=== PATIENT | female | born 1960 | race Caucasian/White ===

== ENCOUNTER → 2017-09-06 | Outpatient (CLI) | payer BC ==
--- NOTE | 2017-09-06 16:30 | ECGEPIP ---
Stationary ECG Study [facility] Test Date: 2017-09-06 Pat Name: FIDE GROSS Department: Room: - Gender: F Environmental Remediation Specialist: : [id number] Requested By: Ney Ramirez @ [facility] Order Number: [id number] Reading MD: Carlene Ann Measurements Intervals [place] Rate: 53 P: 18 UT: 168 QRS: 79 QRSD: 82 T: 65 QT: 415 QTc: 391 Interpretive Statements SINUS BRADYCARDIA no prior Electronically Signed On 09-06-2017 16:29:45 EDT by Carlene Ann
== END ==
LOC: M EKG 15:21
PROVIDERS: ATTEND Orthopaedic Surgery
DX: Z01.812 Encounter for preprocedural laboratory examination (principal)

== ENCOUNTER → 2021-12-08 | Outpatient (REF) | LOC: M LABSMTC 11:15 | PROVIDERS: ATTEND Pediatrics | DX: Z20.822 Contact with and (suspected) exposure to COVID-19 (principal) ==

== ENCOUNTER → 2022-12-19 | Outpatient (CLI) | payer BC ==
[~2022-12-19] MED LIST: ATOR80TA59; CETI5SOL3 PO; ECOT81TA5 PO; METO1TAB7; VITMTA PO
== END ==
LOC: M LABSMTC 11:13
PROVIDERS: ATTEND Anesthesiology
DX: Z01.818 Encounter for other preprocedural examination (principal); Z11.52 Encounter for screening for COVID-19

== ENCOUNTER 2022-12-24 08:50 | Day surgery (SDC) | payer BC ==
[~2022-12-24] VITALS: Ht 160 cm; Wt 60.8 kg
[~2022-12-24 08:50] MED LIST changes: +NS 1,000 ML IV ONE
[2022-12-24] MEDS ORDERED: propofoL 200 MG/20 ML VIAL As Ordered ONE ×3 (10:31→11:07)
[2022-12-24] MEDS ORDERED: LIDOCAINE 2% 100MG/5ML SDV (FOR ANES.) As Ordered ONE (10:31)
[2022-12-24 11:15] VITALS: BP 139/71
== END 2022-12-24 11:28 | disposition home or self-care (01) ==
LOC: M OPP 08:50
PROVIDERS: ATTEND Internal Medicine Gastroenterology
DX: Z12.11 Encounter for screening for malignant neoplasm of colon (principal); K64.8 Other hemorrhoids; Z79.02 Long term (current) use of antithrombotics/antiplatelets; Z79.52 Long term (current) use of systemic steroids; Z79.899 Other long term (current) drug therapy; I48.91 Unspecified atrial fibrillation; F17.200 Nicotine dependence, unspecified, uncomplicated; Z86.74 Personal history of sudden cardiac arrest; Z80.41 Family history of malignant neoplasm of ovary

== ENCOUNTER → 2023-07-31 | Outpatient (CLI) | payer BC ==
[~2023-07-31] MED LIST changes: -NS 1,000 ML IV ONE
== END ==
LOC: M WUC 11:17
PROVIDERS: ATTEND Registered Nurse
DX: M25.531 Pain in right wrist (principal)

== ENCOUNTER → 2024-04-09 | Outpatient (CLI) | payer BC | LOC: M WHC 10:05 | PROVIDERS: ATTEND Internal Medicine | DX: Z12.31 Encounter for screening mammogram for malignant neoplasm of breast (principal); N63.15 Unspecified lump in the right breast, overlapping quadrants; N63.25 Unspecified lump in the left breast, overlapping quadrants ==

== ENCOUNTER 2024-04-14 20:01 | Emergency (ER) | payer OTHER, BC ==
[~2024-04-14] VITALS: Ht 160 cm; Wt 62.3 kg
[2024-04-14] MEDS: ACETAMINOPHEN 325 MG TAB PO ONE (22:00)
[2024-04-14] MEDS: BOOSTRIX VACCINE (TETANUS/DIPHTH/ACEL. PERTUSSIS) 0.5ML SYR IM.IMMUN ONE (22:00)
[2024-04-14] MEDS: BACITRACIN OINTMENT 30GM TUBE TOP ONE (22:00)
[2024-04-15 00:20] VITALS: BP 127/58; TEMP 97.8; O2SAT 95
== END 2024-04-15 00:23 | disposition home or self-care (01) ==
LOC: M ED 20:01
DX: S60.211A Contusion of right wrist, initial encounter (principal); S23.9XXA Sprain of unspecified parts of thorax, initial encounter; S40.811A Abrasion of right upper arm, initial encounter; V49.40XA Driver injured in collision with unspecified motor vehicles in traffic accident, initial encounter; Z23 Encounter for immunization; Y92.410 Unspecified street and highway as the place of occurrence of the external cause; Y93.89 Activity, other specified; Y99.9 Unspecified external cause status; Z79.82 Long term (current) use of aspirin; Z79.02 Long term (current) use of antithrombotics/antiplatelets; Z79.899 Other long term (current) drug therapy; Z96.698 Presence of other orthopedic joint implants

== ENCOUNTER → 2024-04-28 | Outpatient (CLI) | payer BC | LOC: M WHC 11:05 | PROVIDERS: ATTEND Internal Medicine | DX: Z12.31 Encounter for screening mammogram for malignant neoplasm of breast (principal); N63.23 Unspecified lump in the left breast, lower outer quadrant | CPT/HCPCS: 76641; 77065; G0279 ==

== ENCOUNTER → 2024-10-27 | Outpatient (CLI) | payer BC | LOC: M RAD 15:32 | PROVIDERS: ATTEND Internal Medicine | DX: Z12.2 Encounter for screening for malignant neoplasm of respiratory organs (principal); F17.210 Nicotine dependence, cigarettes, uncomplicated; R91.8 Other nonspecific abnormal finding of lung field; M85.89 Other specified disorders of bone density and structure, multiple sites ==

== ENCOUNTER → 2025-02-03 | Outpatient (CLI) | payer BC | LOC: M WHC 14:33 | PROVIDERS: ATTEND Internal Medicine | DX: R92.332 Mammographic heterogeneous density, left breast (principal); N63.23 Unspecified lump in the left breast, lower outer quadrant ==

== ENCOUNTER → 2025-09-03 | Outpatient (CLI) | payer BC | LOC: M WHC 14:58 | PROVIDERS: ATTEND Internal Medicine | DX: N63.23 Unspecified lump in the left breast, lower outer quadrant (principal); R92.333 Mammographic heterogeneous density, bilateral breasts | CPT/HCPCS: 77066; G0279 ==